=== PATIENT | female | born 1990 | race Hispanic/Latino ===

== ENCOUNTER 2022-08-08 09:43 | Outpatient (CLI) | payer BC | END 2022-08-08 09:44 | disposition home or self-care (01) | LOC: DTY/OP 09:43 | PROVIDERS: ATTEND Surgery | DX: E66.01 Morbid (severe) obesity due to excess calories (principal) | CPT/HCPCS: 97802 ==

== ENCOUNTER 2023-02-12 09:24 | Emergency (ER) | payer BC ==
[2023-02-12] MEDS ORDERED: Metoclopramide HCl 10 MG/2 ML VIAL ONE ×2 (09:40→09:49)
[2023-02-12] MEDS ORDERED: Acetaminophen 500 MG TAB ONE ×2 (09:40→09:49)
[2023-02-12] MEDS ORDERED: Ketorolac Tromethamine 30 MG/ML VIAL ONE ×2 (09:40→09:49)
== END 2023-02-12 11:19 | disposition home or self-care (01) ==
LOC: ERS 09:24
DX: R51.9 Headache, unspecified (principal); I10 Essential (primary) hypertension
CPT/HCPCS: J1885; J2765

== ENCOUNTER 2023-02-12 20:39 | Emergency (ER) | payer BC ==
[2023-02-12] MEDS ORDERED: Prochlorperazine 10 MG/2 ML VIAL ONE (22:13)
[2023-02-12] MEDS ORDERED: diphenhydrAMINE 50 MG/ML VIAL ONE (22:13)
[2023-02-12] MEDS ORDERED: Dexamethasone 10 MG/ML VIAL ONE (22:13)
[2023-02-12] MEDS ORDERED: Morphine 4 MG/ML VIAL ONE (22:17)
[2023-02-12 22:20] LABS: #Monocytes 0.5 thou/uL (0.11-0.59); #Neutrophils 10.7 thou/uL (1.40-6.50); %Basophils 0.2 % (0.0-1.0); %Eosinophils 0.1 % (0.0-10.0); %Lymphocytes 16.1 % (21.0-51.0); %Neutrophils 79.2 % (42.0-75.0); Hematocrit 34.8 % (36.0-47.0); Mean Corpuscular HGB CONC 34.5 g/dL (32.0-36.0); Mean Corpuscular Volume 81.3 fl (78.0-98.0); Platelet Count 325 10x3/uL (130-400); Red Blood Cell (RBC) Count 4.28 mill/uL (4.20-5.40); White Blood Cell (WBC) Count 13.5 10x3/uL (4.8-10.8)
[2023-02-12 22:24] LABS: BHCG - Serum Negative (NEGATIVE); Pregs Control Background? CLEAR/WHITE (CLR/WHITE); Pregs Control Bar Appear? YES (CONTROL BAR)
[2023-02-12 22:42] LABS: ALT (SGPT) 22 U/L (8-55); AST (SGOT) 17 U/L (5-34); Alkaline Phosphatase 66 U/L (40-110); Anion Gap 14 mmol/L (10-20); BUN (Urea Nitrogen) 8 mg/dL (7.0-18.7); Bilirubin, Total 0.6 mg/dL (0.2-1.2); Calc. Creatinine Clearance 0 mL/min (70-130); Calcium 8.9 mg/dL (7.8-10.44); Carbon Dioxide 22 mmol/L (22-29); Chloride 103 mmol/L (98-107); Estimated GFR 105; Globulin 3.3 g/dL (2.4-3.5); Glucose 115 mg/dL (70-105); Magnesium 1.7 mg/dL (1.6-2.6); Potassium 3.8 mmol/L (3.5-5.1); Protein, Total 7.3 g/dL (6.0-8.3); Sodium 135 mmol/L (136-145)
== END 2023-02-13 00:14 | disposition home or self-care (01) ==
LOC: ERS 20:39
DX: R51.9 Headache, unspecified (principal)
CPT/HCPCS: 36415; 70450; 80053; 83735; 84703; 85025; 96361; 96374; 96375; J0780; J1100; J1200; J1885; J2270; J2765

== ENCOUNTER 2023-02-27 07:34 | Outpatient (CLI) | payer BC ==
[2023-02-27] MEDS ORDERED: Magnevist 469MG/ML 20 ML VIAL ONE (09:59)
== END 2023-02-27 07:35 | disposition home or self-care (01) ==
LOC: BICMRI 07:34
PROVIDERS: ATTEND Family Medicine
DX: E34.8 Other specified endocrine disorders (principal)
CPT/HCPCS: 70553; A9579